=== PATIENT | male | born 2000 | race Caucasian/White ===

== ENCOUNTER 2025-02-28 08:23 | Emergency (ER) | payer MEDICAID, OTHER ==
[2025-02-28] MEDS ORDERED: Citric Acid/Sodium Citrate Solution 30 ML Cup PO ONE (08:24)
[2025-02-28] MEDS ORDERED: Midazolam 1 MG/ML 2 ML SDV IV ONE (08:24)
[2025-02-28] MEDS ORDERED: Ketamine 500 mg/10 ML MDV IV ONE (08:24)
[2025-02-28] MEDS ORDERED: Propofol 200 MG/20 ML SDV IV ONE (08:24)
[2025-02-28] MEDS ORDERED: Metoclopramide 10 MG/2 ML SDV IVPUSH ONE (08:24)
[2025-02-28] MEDS: HYDROmorphone 2 MG/ML SDV IVPUSH ONE ×2 (08:51→09:34)
[2025-02-28] MEDS: Ondansetron 4 MG/2 ML SDV IVPUSH ONE (09:23)
[2025-02-28] MEDS: LORazepam 2 MG/ML SDV IVPUSH ONE (09:57)
== END 2025-02-28 12:55 | disposition home or self-care (01) ==
LOC: FB.ED 08:23
DX: S43.015A Anterior dislocation of left humerus, initial encounter (principal); S43.025A Posterior dislocation of left humerus, initial encounter; Z79.899 Other long term (current) drug therapy; W01.0XXA Fall on same level from slipping, tripping and stumbling without subsequent striking against object, initial encounter
CPT/HCPCS: 01620; 23650; 23655; 73020; 73030; 73060; 96374; 96375; 96376; 99152; 99283; A9270; J1171; J2060; J2250; J2405; J2704; J2765; J3490